=== PATIENT | male | born 1970 | race Two or more races ===

== ENCOUNTER 2019-12-05 16:10 | Emergency (ER) | payer BC, OTHER ==
[~2019-12-05] VITALS: Ht 198.1 cm; Wt 117.9 kg
[2019-12-05 16:40] VITALS: BP 149/94
== END 2019-12-05 20:35 | disposition home or self-care (01) ==
LOC: ER 16:10
DX: J32.0 Chronic maxillary sinusitis (principal); J18.8 Other pneumonia, unspecified organism; Z20.828 Contact with and (suspected) exposure to other viral communicable diseases
CPT/HCPCS: 36415; 71045; 87426; 99284; C9803; U0003